=== PATIENT | female | born 1935 | race Two or more races ===

== ENCOUNTER → 2019-04-12 | Outpatient (CLI) | payer OTHER | END | disposition home or self-care (01) | LOC: RAD 14:16 | DX: M25.561 Pain in right knee (principal); M25.562 Pain in left knee ==

== ENCOUNTER 2019-10-18 12:46 | Outpatient (CLI) | payer OTHER | END 2019-10-18 16:14 | disposition home or self-care (01) | LOC: RAD 12:46 → LAB 12:46 | PROVIDERS: ATTEND Orthopaedic Surgery | DX: E21.2 Other hyperparathyroidism (principal); M81.8 Other osteoporosis without current pathological fracture; Z76.89 Persons encountering health services in other specified circumstances; M25.551 Pain in right hip; M25.561 Pain in right knee ==

== ENCOUNTER 2020-02-06 16:12 | Outpatient (CLI) | payer OTHER | END 2020-02-06 16:23 | disposition home or self-care (01) | LOC: LAB 16:12 | PROVIDERS: ATTEND Orthopaedic Surgery | DX: E21.2 Other hyperparathyroidism (principal); M81.8 Other osteoporosis without current pathological fracture; E56.1 Deficiency of vitamin K ==

== ENCOUNTER 2021-08-26 07:38 | Outpatient (CLI) | payer OTHER | END 2021-08-26 07:42 | disposition home or self-care (01) | LOC: RX STUDY 07:38 | PROVIDERS: ATTEND Otolaryngology Plastic Surgery within the Head & Neck | DX: R13.10 Dysphagia, unspecified (principal); R05.9 Cough, unspecified ==